=== PATIENT | female | born 1960 | race Caucasian/White ===

== ENCOUNTER 2023-11-17 10:41 | Outpatient (AMB) | payer MEDICAID, SELFPAY ==
[2023-11-17 11:01] VITALS: BP 118/62; BMI 34.6
--- NOTE | 2023-11-17 11:01 | MHC.OFFVIS ---
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: No Allergies levofloxacin [From LEVAQUIN] Allergy (Unknown, Unverified 11/17/23 11:05) UNKNOWN Sulfa (Sulfonamide Antibiotics) [SULFA (SULFONAMIDE ANTIBIOTICS)] Allergy (Unknown, Unverified 04/26/20 16:24) UNKNOWN Sulfa Allergy (Severe, Uncoded 11/17/23 11:05) Hives Levaquin Allergy (Unknown, Uncoded 11/17/23 11:05) psychotic Medication List - Last Reconciled 11/17/23 by Albina Walton LPN acetaminophen (Tylenol) 325 mg PO QID PRN cholecalciferol (vitamin D3) 10 mcg PO DAILY escitalopram oxalate (Lexapro) 20 mg PO DAILY esomeprazole magnesium (Nexium) 40 mg PO DAILY ezetimibe (Zetia) 10 mg PO DAILY famotidine 20 mg PO BEDTIME ibuprofen 600 mg PO Q8H PRN lactobacillus combination no.9 (Adult 50 Plus Probiotic) 4,000 mmu cells PO DAILY loratadine (Claritin) 10 mg PO DAILY magnesium 250 mg PO DAILY oxycodone-acetaminophen 5-325 mg (Percocet) 1 tab PO Q8H PRN sucralfate (Carafate) 1 g PO BID Post menopausal: Yes Patient : No Do you need a note to return to daycare/school/sports/work: No HPI HPI Comments History of Present Illness Details 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 She is doing well with no concerns. Attempting to eat a healthy diet with calcium and vitamin D and stays active with exercise. Currently not sexually active. Admits to vaginal dryness or irritation. Uses estrogen patches for her hot flashes applies it from time to time not consistent, Rx by her PCP. STI testing offered; she declines. Last pap smear; >5-10yrs. ago. Last mammogram; at [facility], no copies here. History of breast cysts. Colonoscopy is UTD. Denies any family history of breast, ovarian or colon cancer. [facility] Medical History (Updated 11/17/23 @ 12:06 by Laura White CNM) Back pain with history of spinal surgery Ectopic Enlarged tonsils Surgical History History of laparoscopy Status post breast lumpectomy H/O hysterectomy with unilateral oophorectomy Family History Father FHx: stomach cancer Mother Lung cancer Bladder cancer Social History Alcohol intake: current Comment: social Patient Tobacco Use Status: Never used Tobacco Female Reproductive History Menstrual Age of Menarche: 14 Duration of menses: 6-7 days Menopause type: surgical Total pregnancies: 8 Full term: 1 Premature: 1 Number of Living Children: 3 (1 adopted) Ab spontaneous: 2 Ectopics: 4 History of abnormal pap smear: No Date of Mammogram: 05/12/23 History of abnormal mammogram: Yes Review of Systems Const All systems reviewed & are unremarkable except as noted in HPI and below Reports as per HPI Eyes Reports no additional complaints ENT Reports no additional complaints Card Reports no additional complaints Resp Reports no additional complaints GI Reports as per HPI and Reports no additional complaints Reports as per HPI Musc Reports no additional complaints Skin/Breast Reports as per HPI Neuro Reports no additional complaints Psych Reports no additional complaints Endo Reports no additional complaints Joni/Lymph Reports no additional complaints Aller/Immun Reports no additional complaints Physical Exam Vital Signs: Last Vital Signs BP 118/62 11/17/23 11:01 BMI result Body Mass Index 34.6 Const General: cooperative, healthy appearing, no acute distress, well developed and alert Orientation/consciousness: patient oriented x3 HEENT Head: Yes normal to inspection Eyes General: appearance normal, both eyes and all related structures Neck Neck: Yes normal visual inspection Thyroid: Thyroid normal Chest Chest palpation & inspection: normal inspection of the chest and other (no puckering, dimpling, peau de orange, retraction, discharge, masses) Breast/axilla inspection: normal inspection of the breasts Breast/axilla palpation: normal palpation of the breasts Resp Effort & Inspection: normal respiratory effort GI Inspection: Yes normal to inspection Palpation (GI): Soft to palpation Rectal Exam - Female: deferred General: Yes bladder normal to palpation External Female Exam: normal external appearance and normal appearance of the urethra Speculum Exam - Vagina: normal appearance of the vagina, normal palpation, normal vaginal discharge and vagina atrophic Speculum Exam - Cervix: Cervix absent (Vaginal cuff no lesions or nodules) Bimanual exam- vagina & uterus: normal bimanual exam, normal palpation, bladder normal to palpation and uterus absent Bimanual Exam- Adnexa, other: no masses Skin General skin exam: no rashes or lesions noted Rashes: no rashes Neuro General: patient oriented x3 Cognition (Neuro): normal cognition Extrem General: Yes normal to inspection Psych Attitude: cooperative Thought process: Normal thought process present Assessment & Plan Assessment & Plan (1) Encounter for well woman exam with routine gynecological exam: Code(s): Z01.419 - Encounter for gynecological examination (general) (routine) without abnormal findings Plan Discussed: Current recommendations for pap smears per ASCCP guidelines. Breast awareness, periodic self breast exams and yearly mammogram. Maintain a healthy lifestyle, well balanced diet including Calcium 1,200 mg and Vitamin D 600 IU daily, and routine exercise. Hormonal therapy use, risk and benefits, since she is not consistently using the patch I recommend she stop altogether. In if she is sexually active in the future she can return to the office in discuss the use of local topical vaginal estrogen. Patient verbalizes understanding and agrees to the plan of care. She was given opportunity to ask questions and all questions were answered to the best of my ability. Release copy of mammogram records from [facility]. 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 This note is constructed using voice recognition software. While every effort has been made to ensure accuracy, crown blocker errors may have been included. Coding Level of Care Code New Pt Prev Care 40-64y(63361) Diagnoses Encounter for well woman exam with routine gynecological exam Z01.419
== END 2023-11-17 12:05 | disposition home or self-care (01) ==
PROVIDERS: PCP Internal Medicine Cardiovascular Disease; Visit Provider Advanced Practice Midwife
DX: Z01.419 Encounter for gynecological examination (general) (routine) without abnormal findings (principal)
CPT/HCPCS: 99386

== ENCOUNTER → 2023-11-17 10:41 | Outpatient (BNVA) | payer MEDICAID, SELFPAY | PROVIDERS: PCP Internal Medicine Cardiovascular Disease; Visit Provider Advanced Practice Midwife | DX: Z01.419 Encounter for gynecological examination (general) (routine) without abnormal findings (principal); Z78.0 Asymptomatic menopausal state; Z90.710 Acquired absence of both cervix and uterus; Z90.721 Acquired absence of ovaries, unilateral | CPT/HCPCS: 99386 ==